=== PATIENT | female | born 1995 | race Caucasian/White ===

== ENCOUNTER 2021-01-22 14:44 | Emergency (ER) | payer BC ==
[2021-01-22 15:49] VITALS: BP 117/73; PULSE 89; TEMP 98.8; BMI 19.3
[2021-01-22] MEDS ORDERED: KETOROLAC TROMETHAMINE 15 MG/ML VIAL IM ONE (16:26)
[2021-01-22] MEDS ORDERED: ACETAMINOPHEN 500 MG TABLET (FP) PO ONE (16:26)
[2021-01-22] MEDS ORDERED: KETOROLAC TROMETHAMINE 30 MG/1 ML VIAL ONE (16:31)
[2021-01-22] MEDS ORDERED: ACETAMINOPHEN 500 MG TABLET (FP) ONE (16:31)
== END 2021-01-22 18:49 | disposition home or self-care (01) ==
LOC: FER 14:44
PROC: 3E0233Z Introduction of Anti-inflammatory into Muscle, Percutaneous Approach (ICD-10-PCS; principal; 2021-01-22)
DX: R51.9 Headache, unspecified (principal); R11.0 Nausea; G44.209 Tension-type headache, unspecified, not intractable
CPT/HCPCS: 99283-25